=== PATIENT | female | born 1995 | race African-American/Black ===

== ENCOUNTER 2017-09-06 11:24 | Emergency (ER) | payer SELFPAY ==
[~2017-09-06] VITALS: Ht 144.8 cm; Wt 49.5 kg
[2017-09-06 11:25] VITALS: BP 139/84; PULSE 104; RESP 14; TEMP 98.2; O2SAT 98
--- NOTE | 2017-09-06 12:53 | PD ---
HPI Chief Complaint: Edema Time Seen by Provider: 12:44 Travel History International Travel<30 days: No Contact w/Intl Traveler<30days: No Traveled to known affect area: No History of Present Illness HPI 22-year-old female presents emergency Department with complaint of right foot swelling since yesterday. Denies injury. Denies pain. Denies fever, vomiting. Denies chest pain, shortness of breath. Denies paresthesias, loss of sensation, decreased range motion, decreased strength to the affected extremity. Denies history of DVT/PE. Denies anticoagulant therapy. Has not taken any medication or drainage from his to alleviate her symptoms. Symptoms are mild in severity. No known relieving or aggravating factors. Denies significant past medical history. No known allergies. No primary care provider in this area. Has no other medical complaints. No other modifying factors or associated signs and symptoms. PFSH Past Medical History ?: Not LMP: 08/03/2017 Social History Alcohol Use: No Tobacco Use: No Substance Use: No Allergies-Medications (Allergen,Severity, Reaction): Coded Allergies: No Known Allergies (Unverified , 09/06/17) Reported Meds & Prescriptions Reported Meds & Active Scripts Active No Active Prescriptions or Reported Medications Review of Systems Except as stated in HPI: all other systems reviewed are Neg Physical Exam Narrative GENERAL: Well-nourished, well-developed black female patient, in no acute distress SKIN: Warm and dry. HEAD: Atraumatic. Normocephalic. EYES: Pupils equal and round. No scleral icterus. No injection or drainage. ENT: Mucosa pink and moist. Airway patent. NECK: Trachea midline. CARDIOVASCULAR: Regular rate. RESPIRATORY: No accessory muscle use. GASTROINTESTINAL: Flat. MUSCULOSKELETAL: Right lower extremity supple and non-tense with 2+ pedal pulse and sensory intact without erythema; right foot and lower leg are edematous and without pitting edema. No Reproducible tenderness on palpation to the right posterior upper calf. I am unable to elicit any pain on firm palpation of the right foot, ankle, lower leg. No obvious deformities. No clubbing. No cyanosis. No edema. NEUROLOGICAL: Awake and alert. Oriented 3. No obvious cranial nerve deficits. Motor grossly within normal limits. Normal speech. PSYCHIATRIC: Appropriate mood and affect; insight and judgment normal. Data Data Last Documented VS Vital Signs Date Time Temp Pulse Resp B/P (MAP) Pulse Ox O2 Delivery O2 Flow Rate FiO2 09/06/17 11:25 98.2 104 14 139/84 (102) 98 Orders Orders Us Leg Venous Doppler (09/06/17 ) MDM Medical Decision Making Medical Screen Exam Complete: Yes Emergency Medical Condition: Yes Medical Record Reviewed: Yes Differential Diagnosis DVT, superficial thrombosis, nonspecific leg edema Narrative Course 22-year-old female with right foot and lower leg edema. Denies injury or pain. Right leg venous Doppler ultrasound ordered to rule out DVT. 1435: Right leg venous Doppler ultrasound concludes: No DVT is identified in the right lower extremity. Patient provided a copy of the ultrasound report. Instructed patient to follow up with primary care provider. Patient verbalizes understanding and agreement with treatment plan. Patient is medically cleared and stable for discharge. Discussed reasons to return to the emergency department. Patient agrees with treatment plan. The patients vital signs are stable and the patient is stable for outpatient follow-up and treatment. Patient discharged home, stable and in no acute distress. Diagnosis Primary Impression: Edema of right lower extremity Referrals: Primary Care Physician Patient Instructions: General Instructions, Leg Edema (ED) Additional Instructions: Elevate affected extremity Follow-up with primary care provider Return to the emergency department immediately with worsening of symptoms Med/Other Pt SpecificInfo: No Change to Meds, No Meds Exist/No RX given Scripts No Active Prescriptions or Reported Meds Disposition: 01 DISCHARGE HOME Condition: Stable [place] Sep 06, 2017 12:53
--- NOTE | 2017-09-06 14:29 | RADRPT ---
EXAM DATE/TIME: 09/06/2017 13:43 [facility] COMPARISON: No previous studies available for comparison. INDICATIONS : Right leg swelling. MEDICAL HISTORY : Right leg edema. SURGICAL HISTORY : None. ENCOUNTER: Initial ACUITY: 1 day PAIN SCORE: 0/10 LOCATION: Right leg. TECHNIQUE: Venous ultrasound of the leg was performed from the inguinal ligament to the proximal calf. Real-danis e, color Doppler and spectral tracing, compression and augmentation techniques were used. FINDINGS: There is normal compressibility of the deep venous system from the inguinal region to the proximal ca lf. No echogenic clot is seen in the lumen of the common femoral, femoral, popliteal, and posterior tibial veins. There is a normal response of the venous system to proximal and distal augmentation an d respiration. CONCLUSION: No DVT is identified in the right lower extremity. Ata Fields MD on September 06, 2017 at 14:25 Board Certified Radiologist. This report was verified electronically.
== END 2017-09-06 14:43 | disposition home or self-care (01) ==
LOC: NEPK 11:24
DX: R60.0 Localized edema (principal)
CPT/HCPCS: 93971; 99284